=== PATIENT | male | born 1965 | race Native Hawaiian/Other Pacific Islander ===

== ENCOUNTER 2020-07-22 17:35 | Emergency (ER) | payer OTHER, MEDICARE, MEDICAID ==
[~2020-07-22] VITALS: Ht 180.3 cm; Wt 106.6 kg
[2020-07-22 19:55] VITALS: BP 161/87
== END 2020-07-22 21:48 | disposition home or self-care (01) ==
LOC: ER 17:35
DX: S43.401A Unspecified sprain of right shoulder joint, initial encounter (principal); E11.9 Type 2 diabetes mellitus without complications; I10 Essential (primary) hypertension; V49.9XXA Car occupant (driver) (passenger) injured in unspecified traffic accident, initial encounter; Y93.89 Activity, other specified; Y92.89 Other specified places as the place of occurrence of the external cause; Y99.8 Other external cause status
CPT/HCPCS: 73030

== ENCOUNTER 2020-09-08 20:08 | Inpatient (IN) | payer MEDICARE, MEDICAID ==
[~2020-09-08] VITALS: Ht 180.3 cm; Wt 106.5 kg
[2020-09-08] MEDS ORDERED: SODIUM CHLORIDE 0.9% 1,000 ML IV ONE (23:30)
[2020-09-08] MEDS ORDERED: ONDANSETRON HCL 4 MG/2 ML VIAL IV ONE (23:30)
[2020-09-08] MEDS ORDERED: MORPHINE SULFATE 4 MG/ML SYR/VIAL IV ONE (23:30)
[2020-09-09] MEDS ORDERED: MORPHINE SULFATE 4 MG/ML SYR/VIAL IV ONE (01:15)
[2020-09-09] MEDS ORDERED: LORazepam 2MG/ML-1ML VIAL IV ONE (05:00)
[2020-09-09] MEDS ORDERED: ASPirin 325 MG TAB PO ONE (05:00)
[2020-09-09] MEDS ORDERED: ACETAMINOPHEN 325 MG TAB PO PRN (05:15)
[2020-09-09] MEDS ORDERED: MORPHINE SULFATE 4 MG/ML SYR/VIAL IV PRN (05:15)
[2020-09-09] MEDS ORDERED: ONDANSETRON HCL 4 MG/2 ML VIAL IV PRN (05:15)
[2020-09-09] MEDS ORDERED: MORPHINE SULF INJ 2 MG/ML SYRINGE 1ML IV PRN (05:15)
[2020-09-09] MEDS ORDERED: HYDROcodone-ACET 5/325MG TAB PO PRN (05:15)
[2020-09-09] MEDS ORDERED: NITROGLYCERIN 0.4 MG SL TAB SL PRN (05:15)
[2020-09-09] MEDS ORDERED: DEXTROSE (50%) 50ML SYRG IV PRN (06:00)
[2020-09-09] MEDS ORDERED: SODIUM CHLOR 0.9% PF (SALINE LOCK) 10ML VIAL/SYR IV SCH (06:00)
[2020-09-09 06:38] LABS: Basophils # (auto) 0 10 ^3/uL (0-0.2); Basophils % (auto) 0.4 % (0.0-2.0); Eosinophils # (auto) 0.1 10 ^3/uL (0-0.8); Eosinophils % (auto) 2.8 % (0.0-7.0); Hematocrit 43.2 % (41.0-53.0); Hemoglobin 14.5 g/dL (13.5-17.5); Lymphocytes # (auto) 0.6 10 ^3/uL (0.4-5.4); Mean Corpuscular Hemoglobin 30.2 pg (28.0-32.0); Mean Corpuscular Hgb Conc. 33.6 g/dL (32.0-36.0); Mean Corpuscular Volume 89.8 fL (80.0-100.0); Monocytes # (auto) 0.4 10 ^3/uL (0-1.3); Monocytes % (auto) 12.3 % (0.0-12.0); Neutrophils # (auto) 2.5 10 ^3/uL (1.6-8.6); Neutrophils % (auto) 68.5 % (37.0-80.0); Nucleated Red Blood Cells % 0.4 %; Platelet Count (auto) 130 10^3/uL (140-450); Red Blood Cells 4.81 10^6/uL (4.5-5.90); Red Cell Distribution Width 14.6 % (11.8-14.3); White Blood Cell 3.6 10^3/uL (4.4-10.8)
[2020-09-09 06:49] LABS: Anion Gap 4 (5-15); Blood Urea Nitrogen 17 mg/dL (7-18); Calcium 8.8 mg/dL (8.5-10.1); Carbon Dioxide 27 mmol/L (21-32); Chloride 104 mmol/L (98-107); Glucose 226 mg/dL (74-106); Potassium 4.4 mmol/L (3.5-5.1); Sodium 135 mmol/L (136-145)
[2020-09-09 06:54] LABS: BUN/Creatinine Ratio 15.6; GFR African American 90 mL/min; GFR Non-African American 74 mL/min
[2020-09-09 07:00] LABS: Cholesterol 112 mg/dL (< 200)
[2020-09-09] MEDS ORDERED: InsuLIN REG 1unit/0.01ml Soln (100units/ml) SC SCH ×2 (07:00→22:00)
[2020-09-09] MEDS ORDERED: ACCU-CHEK COMFORT CURVE STRIP VI SCH (07:00)
[2020-09-09 07:03] LABS: HDL Cholesterol 52 mg/dL (40-59); LDL Cholesterol 54 mg/dL (< 100); Triglycerides 98 mg/dL (< 150)
[2020-09-09] MEDS ORDERED: TIZA2CAP7 PO (07:52)
[2020-09-09] MEDS ORDERED: CHOL20004 PO (07:52)
[2020-09-09] MEDS ORDERED: CYAN-17 PO (07:52)
[2020-09-09] MEDS ORDERED: AMLO5TAB15 PO (07:52)
[2020-09-09] MEDS ORDERED: ATOR10TA PO (07:52)
[2020-09-09] MEDS ORDERED: INSU100I33 SC (07:52)
[2020-09-09] MEDS ORDERED: B-COCAP34 OR (07:52)
[2020-09-09] MEDS ORDERED: NORT25CA PO (07:52)
[2020-09-09] MEDS ORDERED: ASPI-543 PO (07:52)
[2020-09-09] MEDS ORDERED: HYDR-4833 PO (07:52)
[2020-09-09] MEDS ORDERED: INSU100I49 SC (07:52)
[2020-09-09] MEDS ORDERED: PANT40T PO (07:52)
[2020-09-09] MEDS ORDERED: SULF400I3 PO (07:52)
[2020-09-09] MEDS ORDERED: TAMS0.4C36 PO (07:52)
[2020-09-09] MEDS ORDERED: PREG150C62 PO (07:52)
[2020-09-09] MEDS ORDERED: PRED1PAK8 PO (07:52)
[2020-09-09] MEDS ORDERED: METO-158 PO (07:52)
[2020-09-09] MEDS ORDERED: TACR1CAP19 OR (07:52)
[2020-09-09 09:00] VITALS: BP 156/73
--- NOTE | 2020-09-09 09:03 | NUR ---
PAIN MANAGEMENT PATIENT C/O PAIN, MORPHINE GIVEN ORDERED. PATIENT REQUESTING NEUROPATHY MEDICATION, PATIENT EDUCATED NO MEDICATION CAN BE GIVEN UNLESS ORDERED BY MD AND MD WILL BE INFORMED OF PATIENT REQUEST. PATIENT VERBALIZED UNDERSTANDING
--- NOTE | 2020-09-09 09:40 | NUR ---
HOLD P.T. UNTIL PATIENT IS EVALUATED BY ORTHO MD BECAUSE OF L ANKLE FRACTURE.
[2020-09-09] MEDS ORDERED: ENOXAPARIN SOD 40 MG/0.4 ML SYRINGE SC SCH (10:00)
[2020-09-09] MEDS ORDERED: DOCUSATE SOD 100 MG CAP PO SCH (10:00)
[2020-09-09] MEDS ORDERED: ASPirin 81 mg TAB PO SCH (10:00)
[2020-09-09] MEDS ORDERED: ZINC SULFATE 220mg CAP or TAB PO SCH (10:00)
[2020-09-09] MEDS ORDERED: MULTIPLE VITAMIN TAB PO SCH (10:00)
[2020-09-09] MEDS ORDERED: ASCORBIC ACID 500 MG TAB PO SCH (10:00)
[2020-09-09] MEDS ORDERED: TACROLIMUS 1 MG CAP PO SCH (10:00)
[2020-09-09] MEDS ORDERED: METOPROLOL TARTRATE 50 MG TAB PO SCH (10:00)
--- NOTE | 2020-09-09 10:15 | NUR ---
AMA PATIENT ALERT AND ORIENTED X4 PATIENT REQUESTING TO LEAVE AGAINST MEDICAL ADVICE PATIENT EDUCATED ON RISKS OF LEAVING BEFORE RECEIVING CARE, PATIENT VERBALIZED UNDERSTANDING BUT STILL REQUESTING TO LEAVE. DAUGHTER HIGINIO CALLED REQUESTING FATHER TO HAVE AMA FORM PRINTED DAUGHTER EDUCATED ON RISKS OF PATIENT LEAVING AMA, PER HIGINIO SHE IS ON HER WAY TO SCIENTIFIC INFORMATICS ANALYST PATIENT. IV REMOVED CATHETER INTACT, PRESSURE DRESSING APPLIED PATIENT TOLERATED WELL. PATIENT ASSISTED WITH GETTING DRESSED AND ASSISTED TO PERSONAL VEHICLE USING WHEELCHAIR. PATIENT DENIES ALL CHEST PAIN AND SOB, PATIENT COMPLAINS OF NEUROPATHY PAINS. PATIENT ADVISED TO SEE PCP OR RETURN TO ER
[2020-09-09] MEDS ORDERED: ATORVASTATIN 20 MG TAB PO SCH (22:00)
== END 2020-09-09 10:15 | disposition left against medical advice (07) | DRG 563 ==
LOC: ER 20:09 → OVERFLOW 20:10 → CENTRAL 09-09 06:45
PROVIDERS: ADMIT Nurse Practitioner Family; ATTEND Nurse Practitioner Family
DX: S82.52XA Displaced fracture of medial malleolus of left tibia, initial encounter for closed fracture (principal); I47.2 Ventricular tachycardia; Z94.0 Kidney transplant status; E11.22 Type 2 diabetes mellitus with diabetic chronic kidney disease; E78.5 Hyperlipidemia, unspecified; F32.9 Major depressive disorder, single episode, unspecified; G89.4 Chronic pain syndrome; Z53.29 Procedure and treatment not carried out because of patient's decision for other reasons; Y93.01 Activity, walking, marching and hiking; I12.9 Hypertensive chronic kidney disease with stage 1 through stage 4 chronic kidney disease, or unspecified chronic kidney disease; N18.9 Chronic kidney disease, unspecified; X50.1XXA Overexertion from prolonged static or awkward postures, initial encounter; Y92.89 Other specified places as the place of occurrence of the external cause; Y99.8 Other external cause status
CPT/HCPCS: 36415; 73610; 80048; 80061; 82962; 83036; 84484; 85025; 93005; 99291; G0378; J1815; J2405; J7507

== ENCOUNTER 2023-09-23 17:04 | Inpatient (IN) | payer MEDICARE, MEDICAID ==
[~2023-09-23] VITALS: Ht 180.3 cm; Wt 104.5 kg
[~2023-09-23 17:04] MED LIST: AMLO1TAB22 PO; ASPI-543 PO; ATOR10TA PO; B-COCAP34 OR; CHOL20004 PO; CYAN-17 PO; HYDR-4833 PO; INSU100I33 SC; INSU100I49 SC; METO-158 PO; NORT25CA PO; PANT40T PO; PRED1PAK8 PO; PREG-111 PO; SULF400I3 PO; TACR1CAP19 OR; TAMS0.4C36 PO; TIZA2CAP7 PO
[2023-09-23 19:02] LABS: Basophils # (auto) 0.1 10 ^3/uL (0-0.2); Basophils % (auto) 0.7 % (0.0-2.0); Eosinophils # (auto) 0.2 10 ^3/uL (0-0.8); Eosinophils % (auto) 2.3 % (0.0-7.0); Hematocrit 38.1 % (41.0-53.0); Hemoglobin 13.2 g/dL (13.5-17.5); Lymphocytes # (auto) 0.9 10 ^3/uL (0.4-5.4); Lymphocytes % (auto) 9.5 % (10.0-50.0); Mean Corpuscular Hemoglobin 32.7 pg (28.0-32.0); Mean Corpuscular Hgb Conc. 34.7 g/dL (32.0-36.0); Mean Corpuscular Volume 94.2 fL (80.0-100.0); Monocytes # (auto) 1.2 10 ^3/uL (0-1.3); Monocytes % (auto) 13.3 % (0.0-12.0); Neutrophils # (auto) 6.7 10 ^3/uL (1.6-8.6); Neutrophils % (auto) 74.2 % (37.0-80.0); Nucleated Red Blood Cells % 0.1 %; Red Blood Cells 4.05 10^6/uL (4.5-5.90); Red Cell Distribution Width 13.9 % (11.8-14.3)
[2023-09-23 19:21] LABS: Alanine Aminotransferase 17 U/L (7-40); Albumin 3.4 g/dL (3.2-4.8); Alkaline Phosphatase 85 U/L (46-116); Anion Gap 17 (5-15); Aspartate Aminotransferase 18 U/L (13-40); Bilirubin, Total 0.6 mg/dL (0.2-1.0); Calcium 8.5 mg/dL (8.5-10.1); Carbon Dioxide 20 mmol/L (20-30); Chloride 99 mmol/L (98-107); Glucose 196 mg/dL (74-106); Potassium 3.3 mmol/L (3.5-5.1); Sodium 136 mmol/L (136-145)
[2023-09-23 19:22] LABS: Total Protein 5.7 g/dL (5.7-8.2)
[2023-09-23 19:23] LABS: BUN/Creatinine Ratio 5.6 (10.0-20.0); Blood Urea Nitrogen < 5 mg/dL (9-23)
[2023-09-23 19:30] VITALS: PULSE 114; RESP 19; O2SAT 96
[2023-09-23] MEDS ORDERED: LACTATED RINGER'S 2,000 ML IV ONE (21:30)
[2023-09-23 22:42] LABS: Lipase 32 U/L (12-53); Magnesium 1.4 mg/dL (1.6-2.6)
[2023-09-23 22:42] LABS: Erythrocyte Sedimentation Rate 39 mm/hr (0-20)
[2023-09-23 22:46] LABS: Blood Alcohol < 3.0 mg/dL (<10)
[2023-09-24 00:01] LABS: Urine Bacteria NONE SEEN /hpf (None Seen); Urine Blood Negative /uL (Negative); Urine Clarity Clear (Clear); Urine Color Yellow (Yellow); Urine Mucus FEW (None Seen); Urine Protein, UAD Negative (Negative); Urine Urobilinogen Normal (Negative); Urine WBC <1 /hpf (0 - 3)
[2023-09-24] MEDS ORDERED: ONDANSETRON HCL 4 MG/2 ML VIAL IV ONE (02:45)
[2023-09-24] MEDS ORDERED: HYDROmorphone HCL 2 MG/ML VL/or syr IV ONE (02:45)
[2023-09-24] MEDS ORDERED: NITROGLYCERIN 0.4 MG SL TAB SL PRN (05:15)
[2023-09-24] MEDS ORDERED: POTASSIUM CHL 20 Meq TABLET PO ONE (05:15)
[2023-09-24] MEDS ORDERED: MORPHINE SULFATE INJ 2 MG/ml SYRG IV PRN (05:15)
[2023-09-24] MEDS ORDERED: ONDANSETRON HCL 4 MG/2 ML VIAL IV PRN (05:15)
[2023-09-24] MEDS ORDERED: DEXTROSE (50%) 50ML SYRG IV PRN (05:15)
[2023-09-24 06:27] LABS: Chloride 98 mmol/L (98-107); Potassium 3.1 mmol/L (3.5-5.1); Sodium 134 mmol/L (136-145)
[2023-09-24 06:28] LABS: Anion Gap 15 (5-15); Calcium 8.3 mg/dL (8.5-10.1); Carbon Dioxide 21 mmol/L (20-30)
[2023-09-24 06:33] LABS: Glucose 213 mg/dL (74-106)
[2023-09-24 06:34] LABS: BUN/Creatinine Ratio 5.7 (10.0-20.0); Blood Urea Nitrogen < 5 mg/dL (9-23)
[2023-09-24] MEDS: MAGNESIUM SULFATE 1GM/100ML 100 ML IV SCH ×2 (06:49→17:02)
[2023-09-24] MEDS: SODIUM CHLORIDE 0.9% 1,000 ML IV SCH ×2 (06:49→16:22)
[2023-09-24 08:00] VITALS: RESP 20; O2SAT 98
[2023-09-24] MEDS: ACCU-CHEK COMFORT CURVE STRIP VI SCH ×4 (08:00→22:28)
[2023-09-24] MEDS: InsuLIN REG 1unit/0.01ml Soln (100units/ml) SC SCH ×4 (09:32→22:31)
[2023-09-24] MEDS ORDERED: ROSU5TAB5 PO (09:48)
[2023-09-24] MEDS ORDERED: SEMA14TA2 PO (09:48)
[2023-09-24] MEDS ORDERED: NORT25CA PO (09:48)
[2023-09-24] MEDS ORDERED: BUSP15TA60 PO (09:48)
[2023-09-24] MEDS ORDERED: DESV1TAB PO (09:48)
[2023-09-24] MEDS ORDERED: TACROLIMUS 1 MG CAP PO SCH (10:00)
[2023-09-24] MEDS: busPIRone HCL 10 MG TAB PO SCH ×2 (10:42→22:29)
[2023-09-24] MEDS: ACETAMINOPHEN 325 MG TAB PO PRN (10:42)
[2023-09-24] MEDS: amLODIPine BESYLATE 5 MG TAB PO SCH (10:42)
[2023-09-24] MEDS ORDERED: MAGNESIUM SULFATE 1GM/100ML 100 ML IV ONE (13:31)
[2023-09-24] MEDS ORDERED: chlorproMAZINE HCL 25 MG TAB PO PRN (14:15)
[2023-09-24 14:20] VITALS: BP 120/38; PULSE 105; RESP 17; TEMP 98.8; O2SAT 99
[2023-09-24] MEDS ORDERED: LINA1CAP2 PO (15:29)
[2023-09-24] MEDS ORDERED: ROSU1TAB12 PO (15:29)
[2023-09-24 17:00] VITALS: BP 131/79; PULSE 100; RESP 18; TEMP 98.5; O2SAT 100
[2023-09-24] MEDS: HYDROcodone-ACET 5/325MG TAB PO PRN (17:03)
[2023-09-24] MEDS ORDERED: TAMSULOSIN HYDROCHLORIDE 0.4 MG CAP PO SCH (18:00)
[2023-09-24 20:00] VITALS: PULSE 110; RESP 18; O2SAT 98
[2023-09-24] MEDS ORDERED: POTASSIUM EFFERVESENT TAB 25 MEQ PO ONE (20:30)
[2023-09-24 22:00] VITALS: BP 136/34; PULSE 102; TEMP 98.3; O2SAT 100
[2023-09-24] MEDS: PANTOPRAZOLE 40 MG/10 ML VIAL INJ IV SCH (22:15)
[2023-09-24] MEDS: ATORVASTATIN 20 MG TAB PO SCH (22:29)
[2023-09-24] MEDS: TACROLIMUS 1 MG CAP PO SCH (22:29)
[2023-09-25] VITALS (8 sets, daily range): BP systolic 97–160; BP diastolic 31–71; PULSE 103–119; RESP 16–20; TEMP 97.9–98.3; O2SAT 9–99
[2023-09-25] MEDS: HYDROcodone-ACET 5/325MG TAB PO PRN ×3 (00:59→18:23)
[2023-09-25] MEDS: ACCU-CHEK COMFORT CURVE STRIP VI SCH ×6 (00:59→23:29)
[2023-09-25] MEDS: InsuLIN REG 1unit/0.01ml Soln (100units/ml) SC SCH ×5 (01:14→18:57)
[2023-09-25 05:23] LABS: Basophils # (auto) 0 10 ^3/uL (0-0.2); Basophils % (auto) 0.4 % (0.0-2.0); Eosinophils # (auto) 0.3 10 ^3/uL (0-0.8); Eosinophils % (auto) 2.5 % (0.0-7.0); Hematocrit 37.8 % (41.0-53.0); Hemoglobin 12.9 g/dL (13.5-17.5); Lymphocytes # (auto) 0.9 10 ^3/uL (0.4-5.4); Lymphocytes % (auto) 9.3 % (10.0-50.0); Mean Corpuscular Hemoglobin 32.1 pg (28.0-32.0); Mean Corpuscular Hgb Conc. 34.1 g/dL (32.0-36.0); Mean Corpuscular Volume 94.1 fL (80.0-100.0); Monocytes # (auto) 0.9 10 ^3/uL (0-1.3); Monocytes % (auto) 8.5 % (0.0-12.0); Neutrophils # (auto) 8.1 10 ^3/uL (1.6-8.6); Neutrophils % (auto) 79.3 % (37.0-80.0); Nucleated Red Blood Cells % 0.1 %; Red Blood Cells 4.02 10^6/uL (4.5-5.90); Red Cell Distribution Width 13.8 % (11.8-14.3); White Blood Cell 10.2 10^3/uL (4.4-10.8)
[2023-09-25 05:45] LABS: Alanine Aminotransferase 10 U/L (7-40); Albumin 3.4 g/dL (3.2-4.8); Alkaline Phosphatase 90 U/L (46-116); Anion Gap 14 (5-15); Aspartate Aminotransferase 18 U/L (13-40); Calcium 8.7 mg/dL (8.7-10.4); Carbon Dioxide 22 mmol/L (20-30); Chloride 98 mmol/L (98-107); Glucose 134 mg/dL (74-106); Potassium 3.6 mmol/L (3.5-5.1); Sodium 134 mmol/L (136-145)
[2023-09-25 05:46] LABS: Bilirubin, Total 0.5 mg/dL (0.2-1.0); Total Protein 6.1 g/dL (5.7-8.2)
[2023-09-25] MEDS: SODIUM CHLORIDE 0.9% 1,000 ML IV SCH (05:50)
[2023-09-25 05:57] LABS: BUN/Creatinine Ratio 6.3 (10.0-20.0); Blood Urea Nitrogen < 5 mg/dL (9-23)
[2023-09-25] MEDS ORDERED: SODIUM CHLORIDE 0.9% 500 ML IV ONE (09:45)
[2023-09-25] MEDS ORDERED: VANCOMYCIN PER PHARMACY 0 MG IV SCH (09:45)
[2023-09-25] MEDS ORDERED: PANTOPRAZOLE 40 MG/10 ML VIAL INJ IV SCH (10:00)
[2023-09-25] MEDS: amLODIPine BESYLATE 5 MG TAB PO SCH (10:00)
[2023-09-25] MEDS ORDERED: VANCOMYCIN 1GM/250ML 250 ML IV ONE (10:15)
[2023-09-25] MEDS: busPIRone HCL 10 MG TAB PO SCH (11:16)
[2023-09-25] MEDS: PANTOPRAZOLE 40 MG/10 ML VIAL INJ IV SCH (11:16)
[2023-09-25] MEDS: predniSONE 5 MG TAB PO SCH (11:19)
[2023-09-25] MEDS: TACROLIMUS 1 MG CAP PO SCH ×2 (11:49→18:29)
[2023-09-25] MEDS ORDERED: LIDOCAINE VISCOUS 2% 15ML UD ONE (12:41)
[2023-09-25] MEDS ORDERED: SODIUM CHLORIDE LOCK 10 ML ONE (12:42)
[2023-09-25] MEDS ORDERED: MIDAZOLAM HCL 5 MG/ML-1ML VIAL ONE (12:42)
[2023-09-25] MEDS ORDERED: diphenhdrAMINE HCL 50 MG/1 ML VL ONE (12:42)
[2023-09-25] MEDS ORDERED: fentaNYL CITRATE 100 MCG/2 ML VL ONE ×2 (12:42→15:47)
[2023-09-25] MEDS ORDERED: MIDAZOLAM HCL 2MG/2ML 2ml VIAL (1mg/ml) ONE (15:47)
[2023-09-25] MEDS ORDERED: ONDANSETRON HCL 4 MG/2 ML VIAL ONE (15:48)
[2023-09-25] MEDS ORDERED: LIDOCAINE 2% (LOCAL ANESTH.) PF 5ml SDV ONE (15:48)
[2023-09-25] MEDS ORDERED: PROPOFOL 10 MG/ML 20 ML IV ONE (15:48)
[2023-09-25] MEDS ORDERED: METOCLOPRAMIDE HCL 5MG/ml INJ 2ml VIAL IV PRN (16:15)
[2023-09-25] MEDS ORDERED: InsuLIN REG 1unit/0.01ml Soln (100units/ml) IV ONE (16:15)
[2023-09-25] MEDS ORDERED: ONDANSETRON HCL 4 MG/2 ML VIAL IV PRN (16:30)
[2023-09-25] MEDS: SUCRALFATE 1 GM/10 ML ORAL SUSP PO SCH (18:29)
[2023-09-25] MEDS: CEFEPIME 2GM/50ML NS 50 ML IV SCH (19:11)
[2023-09-25] MEDS ORDERED: MELATONIN 5 MG TAB PO ONE (23:15)
[2023-09-26] MEDS: InsuLIN REG 1unit/0.01ml Soln (100units/ml) SC SCH ×6 (00:02→20:24)
[2023-09-26] MEDS: PANTOPRAZOLE 40 MG/10 ML VIAL INJ IV SCH ×3 (00:04→23:00)
[2023-09-26] MEDS: VANCOMYCIN 1GM/250ML 250 ML IV SCH ×3 (00:04→19:01)
[2023-09-26] MEDS: busPIRone HCL 10 MG TAB PO SCH ×3 (00:04→22:59)
[2023-09-26] MEDS: SUCRALFATE 1 GM/10 ML ORAL SUSP PO SCH ×5 (00:05→22:59)
[2023-09-26] MEDS: ATORVASTATIN 20 MG TAB PO SCH ×2 (00:06→22:59)
[2023-09-26] MEDS: HYDROcodone-ACET 5/325MG TAB PO PRN ×4 (00:07→21:14)
[2023-09-26] MEDS: CEFEPIME 2GM/50ML NS 50 ML IV SCH ×2 (04:14→18:00)
[2023-09-26 05:00] VITALS: BP 127/45; PULSE 105; RESP 18; TEMP 97.7; O2SAT 100
[2023-09-26] MEDS: ACCU-CHEK COMFORT CURVE STRIP VI SCH ×6 (05:18→20:21)
[2023-09-26 05:43] LABS: Chloride 99 mmol/L (98-107); Potassium 3.7 mmol/L (3.5-5.1); Sodium 134 mmol/L (136-145)
[2023-09-26 05:45] LABS: Anion Gap 10 (5-15); Calcium 8.2 mg/dL (8.7-10.4); Carbon Dioxide 25 mmol/L (20-30)
[2023-09-26 05:53] LABS: Basophils # (auto) 0 10 ^3/uL (0-0.2); Basophils % (auto) 0.2 % (0.0-2.0); Eosinophils # (auto) 0.1 10 ^3/uL (0-0.8); Hematocrit 36.1 % (41.0-53.0); Hemoglobin 12.7 g/dL (13.5-17.5); Lymphocytes # (auto) 0.4 10 ^3/uL (0.4-5.4); Lymphocytes % (auto) 7.6 % (10.0-50.0); Mean Corpuscular Hemoglobin 33.3 pg (28.0-32.0); Mean Corpuscular Hgb Conc. 35.2 g/dL (32.0-36.0); Mean Corpuscular Volume 94.8 fL (80.0-100.0); Monocytes # (auto) 0.5 10 ^3/uL (0-1.3); Monocytes % (auto) 7.6 % (0.0-12.0); Neutrophils # (auto) 4.9 10 ^3/uL (1.6-8.6); Neutrophils % (auto) 82.6 % (37.0-80.0); Nucleated Red Blood Cells % 0.1 %; Red Blood Cells 3.81 10^6/uL (4.5-5.90); Red Cell Distribution Width 13.6 % (11.8-14.3); White Blood Cell 5.9 10^3/uL (4.4-10.8)
[2023-09-26 06:18] LABS: BUN/Creatinine Ratio 5.4 (10.0-20.0); Blood Urea Nitrogen < 5 mg/dL (9-23); Glucose 288 mg/dL (74-106)
[2023-09-26 08:00] VITALS: PULSE 104; PULSE 107; RESP 16; O2SAT 98
[2023-09-26] MEDS: amLODIPine BESYLATE 5 MG TAB PO SCH (08:46)
[2023-09-26 09:23] VITALS: BP 157/45; PULSE 111; RESP 17; TEMP 97.9; O2SAT 99
[2023-09-26] MEDS: TACROLIMUS 1 MG CAP PO SCH ×2 (09:47→21:14)
[2023-09-26 12:00] VITALS: BP 109/35; PULSE 107; RESP 18; TEMP 98.9; O2SAT 98
[2023-09-26] MEDS: predniSONE 5 MG TAB PO SCH (12:59)
[2023-09-26 16:53] VITALS: BP 120/35; PULSE 104; RESP 18; TEMP 98; O2SAT 99
[2023-09-26] MEDS ORDERED: VANCOMYCIN 1GM/250ML 250 ML IV SCH (19:30)
[2023-09-26 20:00] VITALS: PULSE 110; RESP 18; O2SAT 96
[2023-09-26 21:25] LABS: Magnesium 1.4 mg/dL (1.6-2.6)
[2023-09-26 21:27] LABS: Phosphorus 2.3 mg/dL (2.4-5.1)
[2023-09-26] MEDS ORDERED: MELATONIN 5 MG TAB PO ONE ×2 (22:00→23:00)
[2023-09-26 22:30] LABS: Magnesium 1.5 mg/dL (1.6-2.6)
[2023-09-26 22:31] LABS: Phosphorus 2.2 mg/dL (2.4-5.1)
[2023-09-26] MEDS ORDERED: MAGNESIUM SULFATE 1GM/100ML 100 ML IV ONE (23:00)
[2023-09-27] VITALS (8 sets, daily range): BP systolic 110–147; BP diastolic 34–87; PULSE 82–122; RESP 16–18; TEMP 97.7–99.4; O2SAT 96–100
[2023-09-27] MEDS: ACCU-CHEK COMFORT CURVE STRIP VI SCH ×7 (00:11→23:59)
[2023-09-27] MEDS: CEFEPIME 2GM/50ML NS 50 ML IV SCH ×4 (00:12→22:04)
[2023-09-27] MEDS: InsuLIN REG 1unit/0.01ml Soln (100units/ml) SC SCH ×6 (00:28→21:02)
[2023-09-27 03:11] LABS: COVID19 ANTIGEN SOFIA FIA NEGATIVE (NEGATIVE)
[2023-09-27 05:29] LABS: Anion Gap 9 (5-15); Carbon Dioxide 29 mmol/L (20-30); Chloride 100 mmol/L (98-107); Potassium 3.4 mmol/L (3.5-5.1); Sodium 138 mmol/L (136-145)
[2023-09-27 05:30] LABS: Calcium 8.8 mg/dL (8.7-10.4)
[2023-09-27 05:36] LABS: Blood Urea Nitrogen < 5 mg/dL (9-23); Glucose 119 mg/dL (74-106)
[2023-09-27 05:38] LABS: Basophils # (auto) 0 10 ^3/uL (0-0.2); Basophils % (auto) 0.4 % (0.0-2.0); Eosinophils # (auto) 0.3 10 ^3/uL (0-0.8); Eosinophils % (auto) 3.2 % (0.0-7.0); Hematocrit 40.1 % (41.0-53.0); Hemoglobin 13.9 g/dL (13.5-17.5); Lymphocytes # (auto) 0.6 10 ^3/uL (0.4-5.4); Lymphocytes % (auto) 7.6 % (10.0-50.0); Mean Corpuscular Hemoglobin 32.1 pg (28.0-32.0); Mean Corpuscular Hgb Conc. 34.7 g/dL (32.0-36.0); Mean Corpuscular Volume 92.7 fL (80.0-100.0); Monocytes # (auto) 0.7 10 ^3/uL (0-1.3); Neutrophils # (auto) 6.2 10 ^3/uL (1.6-8.6); Neutrophils % (auto) 79.8 % (37.0-80.0); Red Blood Cells 4.33 10^6/uL (4.5-5.90); White Blood Cell 7.8 10^3/uL (4.4-10.8)
[2023-09-27] MEDS: SUCRALFATE 1 GM/10 ML ORAL SUSP PO SCH ×4 (06:05→22:04)
[2023-09-27] MEDS ORDERED: POTASSIUM PHOSPHATE 22 MEQ in SODIUM CHL 0.9% 100 ML IV ONE (07:15)
[2023-09-27] MEDS: VANCOMYCIN 1GM/250ML 250 ML IV SCH ×2 (08:23→20:38)
[2023-09-27] MEDS ORDERED: MAGNESIUM OXIDE 400 MG TAB PO ONE (08:30)
[2023-09-27 09:41] LABS: INR 1.19 (0.9-1.15); Partial Thromboplastin Time 32.3 SEC (24.5-34.5); Prothrombin Time 12.4 sec (9.3-11.8)
[2023-09-27] MEDS: TACROLIMUS 1 MG CAP PO SCH ×2 (10:47→22:04)
[2023-09-27] MEDS: PANTOPRAZOLE 40 MG/10 ML VIAL INJ IV SCH ×2 (10:47→22:04)
[2023-09-27] MEDS: predniSONE 5 MG TAB PO SCH (11:06)
[2023-09-27] MEDS: busPIRone HCL 10 MG TAB PO SCH ×2 (11:06→22:03)
[2023-09-27] MEDS: amLODIPine BESYLATE 5 MG TAB PO SCH (11:06)
[2023-09-27] MEDS: HYDROcodone-ACET 5/325MG TAB PO PRN ×2 (12:16→20:36)
[2023-09-27] MEDS ORDERED: diphenhdrAMINE HCL 50 MG/1 ML VL IV PRN (15:30)
[2023-09-27] MEDS: ATORVASTATIN 20 MG TAB PO SCH (22:00)
[2023-09-27] MEDS: AMIODARONE HCL 200 MG TAB PO SCH (22:03)
[2023-09-28] VITALS (9 sets, daily range): BP systolic 123–168; BP diastolic 53–82; PULSE 86–108; RESP 18–20; TEMP 98–98.6; O2SAT 94–100
[2023-09-28] MEDS: InsuLIN REG 1unit/0.01ml Soln (100units/ml) SC SCH ×6 (00:01→20:35)
[2023-09-28] MEDS: ACCU-CHEK COMFORT CURVE STRIP VI SCH ×5 (04:15→20:31)
[2023-09-28] MEDS: CEFEPIME 2GM/50ML NS 50 ML IV SCH ×3 (06:06→21:35)
[2023-09-28] MEDS: SUCRALFATE 1 GM/10 ML ORAL SUSP PO SCH ×4 (06:09→21:35)
[2023-09-28 07:55] LABS: Basophils # (auto) 0 10 ^3/uL (0-0.2); Basophils % (auto) 0.3 % (0.0-2.0); Eosinophils # (auto) 0.3 10 ^3/uL (0-0.8); Eosinophils % (auto) 3.8 % (0.0-7.0); Hematocrit 39.2 % (41.0-53.0); Hemoglobin 13.2 g/dL (13.5-17.5); Lymphocytes # (auto) 0.7 10 ^3/uL (0.4-5.4); Lymphocytes % (auto) 8.7 % (10.0-50.0); Mean Corpuscular Hemoglobin 30.7 pg (28.0-32.0); Mean Corpuscular Hgb Conc. 33.7 g/dL (32.0-36.0); Mean Corpuscular Volume 91.1 fL (80.0-100.0); Monocytes # (auto) 0.7 10 ^3/uL (0-1.3); Monocytes % (auto) 8.6 % (0.0-12.0); Neutrophils # (auto) 6.7 10 ^3/uL (1.6-8.6); Neutrophils % (auto) 78.6 % (37.0-80.0); Nucleated Red Blood Cells % 0.1 %; White Blood Cell 8.6 10^3/uL (4.4-10.8)
[2023-09-28 08:07] LABS: Chloride 103 mmol/L (98-107); Potassium 3.9 mmol/L (3.5-5.1); Sodium 139 mmol/L (136-145)
[2023-09-28 08:08] LABS: Anion Gap 8 (5-15); Carbon Dioxide 28 mmol/L (20-30)
[2023-09-28 08:09] LABS: Calcium 8.4 mg/dL (8.5-10.1)
[2023-09-28 08:13] LABS: Glucose 188 mg/dL (74-106)
[2023-09-28 08:16] LABS: Phosphorus 3.5 mg/dL (2.4-5.1)
[2023-09-28 08:21] LABS: BUN/Creatinine Ratio 5.7 (10.0-20.0); Blood Urea Nitrogen < 5 mg/dL (9-23)
[2023-09-28] MEDS ORDERED: GLYCOPYRROLATE 0.2 MG/ML 1ML VIAL ONE (09:01)
[2023-09-28] MEDS ORDERED: PROPOFOL 10 MG/ML 20 ML IV ONE (09:01)
[2023-09-28] MEDS ORDERED: MIDAZOLAM HCL 2MG/2ML 2ml VIAL (1mg/ml) ONE (09:01)
[2023-09-28] MEDS ORDERED: ONDANSETRON HCL 4 MG/2 ML VIAL ONE (09:01)
[2023-09-28] MEDS ORDERED: LIDOCAINE 2% (LOCAL ANESTH.) PF 5ml SDV ONE (09:01)
[2023-09-28] MEDS ORDERED: fentaNYL CITRATE 100 MCG/2 ML VL ONE (09:01)
[2023-09-28] MEDS ORDERED: ceFAZolin 2 GM/D5W100ml 100 ML IV ONE (10:48)
[2023-09-28] MEDS ORDERED: HYDROmorphone HCL 2 MG/ML VL/or syr IV PRN (11:15)
[2023-09-28] MEDS ORDERED: ONDANSETRON HCL 4 MG/2 ML VIAL IV PRN (11:15)
[2023-09-28] MEDS ORDERED: ACCU-CHEK COMFORT CURVE STRIP VI ONE (11:15)
[2023-09-28] MEDS ORDERED: VANCOMYCIN 1GM/250ML 250 ML IV SCH (11:30)
[2023-09-28] MEDS: PANTOPRAZOLE 40 MG/10 ML VIAL INJ IV SCH ×2 (12:00→21:35)
[2023-09-28] MEDS: TACROLIMUS 1 MG CAP PO SCH ×2 (12:00→20:30)
[2023-09-28] MEDS: busPIRone HCL 10 MG TAB PO SCH ×2 (12:02→21:36)
[2023-09-28] MEDS: predniSONE 5 MG TAB PO SCH (12:02)
[2023-09-28] MEDS: amLODIPine BESYLATE 5 MG TAB PO SCH (12:02)
[2023-09-28] MEDS: AMIODARONE HCL 200 MG TAB PO SCH ×2 (12:02→21:36)
[2023-09-28 12:11] LABS: Magnesium 1.6 mg/dL (1.6-2.6)
[2023-09-28] MEDS: HYDROcodone-ACET 5/325MG TAB PO PRN ×2 (12:29→20:30)
[2023-09-28] MEDS: guaiFENesin-DM 100/10mg/5ml SYR PO PRN ×3 (14:58→23:35)
[2023-09-28] MEDS: ATORVASTATIN 20 MG TAB PO SCH (21:38)
[2023-09-29] VITALS (8 sets, daily range): BP systolic 116–144; BP diastolic 35–57; PULSE 98–106; RESP 19–20; TEMP 98.2–100.3; O2SAT 98–100
[2023-09-29] MEDS: VANCOMYCIN 1GM/250ML 250 ML IV SCH ×2 (00:19→15:32)
[2023-09-29] MEDS: ACCU-CHEK COMFORT CURVE STRIP VI SCH ×7 (00:20→23:18)
[2023-09-29] MEDS: InsuLIN REG 1unit/0.01ml Soln (100units/ml) SC SCH ×7 (00:28→23:19)
[2023-09-29] MEDS: HYDROcodone-ACET 5/325MG TAB PO PRN ×4 (02:09→21:33)
[2023-09-29] MEDS: ACETAMINOPHEN 325 MG TAB PO PRN (04:28)
[2023-09-29] MEDS: CEFEPIME 2GM/50ML NS 50 ML IV SCH ×3 (05:36→22:23)
[2023-09-29] MEDS: guaiFENesin-DM 100/10mg/5ml SYR PO PRN ×3 (05:41→22:59)
[2023-09-29] MEDS: SUCRALFATE 1 GM/10 ML ORAL SUSP PO SCH ×4 (05:41→22:23)
[2023-09-29 08:36] LABS: Chloride 98 mmol/L (98-107); Potassium 4.1 mmol/L (3.5-5.1)
[2023-09-29 08:37] LABS: Anion Gap 4 (5-15); Carbon Dioxide 32 mmol/L (20-30)
[2023-09-29 08:38] LABS: Basophils # (auto) 0 10 ^3/uL (0-0.2); Basophils % (auto) 0.4 % (0.0-2.0); Eosinophils # (auto) 0.2 10 ^3/uL (0-0.8); Eosinophils % (auto) 2.6 % (0.0-7.0); Hematocrit 39.5 % (41.0-53.0); Hemoglobin 13.4 g/dL (13.5-17.5); Lymphocytes # (auto) 0.4 10 ^3/uL (0.4-5.4); Lymphocytes % (auto) 5.5 % (10.0-50.0); Mean Corpuscular Hemoglobin 31.8 pg (28.0-32.0); Mean Corpuscular Volume 93.6 fL (80.0-100.0); Monocytes # (auto) 0.9 10 ^3/uL (0-1.3); Monocytes % (auto) 12.8 % (0.0-12.0); Neutrophils # (auto) 5.8 10 ^3/uL (1.6-8.6); Neutrophils % (auto) 78.7 % (37.0-80.0); Nucleated Red Blood Cells % 0.2 %; Red Blood Cells 4.23 10^6/uL (4.5-5.90); White Blood Cell 7.3 10^3/uL (4.4-10.8)
[2023-09-29 08:42] LABS: Glucose 205 mg/dL (74-106)
[2023-09-29 08:44] LABS: BUN/Creatinine Ratio 5.7 (10.0-20.0); Blood Urea Nitrogen < 5 mg/dL (9-23); Sodium 134 mmol/L (136-145)
[2023-09-29 08:45] LABS: Phosphorus 2.5 mg/dL (2.4-5.1)
[2023-09-29] MEDS: TACROLIMUS 1 MG CAP PO SCH ×2 (08:58→22:22)
[2023-09-29] MEDS: PANTOPRAZOLE 40 MG/10 ML VIAL INJ IV SCH ×2 (08:59→22:23)
[2023-09-29] MEDS: busPIRone HCL 10 MG TAB PO SCH ×2 (08:59→22:23)
[2023-09-29] MEDS: predniSONE 5 MG TAB PO SCH (08:59)
[2023-09-29] MEDS: AMIODARONE HCL 200 MG TAB PO SCH ×2 (08:59→22:22)
[2023-09-29 09:21] LABS: Magnesium 1.5 mg/dL (1.6-2.6)
[2023-09-29] MEDS: amLODIPine BESYLATE 5 MG TAB PO SCH (12:10)
[2023-09-29] MEDS: MAGNESIUM SULFATE 1GM/100ML 100 ML IV SCH ×3 (14:15→18:06)
[2023-09-29] MEDS: METOPROLOL TARTRATE 50 MG TAB PO SCH (22:00)
[2023-09-29] MEDS: ATORVASTATIN 20 MG TAB PO SCH (22:22)
[2023-09-30] MEDS: ACCU-CHEK COMFORT CURVE STRIP VI SCH ×4 (03:37→17:42)
[2023-09-30] MEDS: HYDROcodone-ACET 5/325MG TAB PO PRN ×2 (03:38→11:22)
[2023-09-30] MEDS: InsuLIN REG 1unit/0.01ml Soln (100units/ml) SC SCH ×4 (03:39→17:40)
[2023-09-30 05:00] VITALS: BP 134/27; PULSE 107; RESP 19; TEMP 101; O2SAT 92
[2023-09-30] MEDS: SUCRALFATE 1 GM/10 ML ORAL SUSP PO SCH ×3 (06:04→17:32)
[2023-09-30] MEDS: CEFEPIME 2GM/50ML NS 50 ML IV SCH ×2 (06:04→14:00)
[2023-09-30] MEDS: ACETAMINOPHEN 325 MG TAB PO PRN ×2 (06:04→14:49)
[2023-09-30 08:00] VITALS: PULSE 100; PULSE 101; RESP 20; O2SAT 99
[2023-09-30] MEDS: PANTOPRAZOLE 40 MG/10 ML VIAL INJ IV SCH (08:35)
[2023-09-30] MEDS: TACROLIMUS 1 MG CAP PO SCH (08:35)
[2023-09-30 08:56] VITALS: BP 138/21; PULSE 100; RESP 21; TEMP 97.9; O2SAT 92
[2023-09-30] MEDS: VANCOMYCIN 1GM/250ML 250 ML IV SCH (09:08)
[2023-09-30 09:31] LABS: Basophils # (auto) 0.1 10 ^3/uL (0-0.2); Basophils % (auto) 0.9 % (0.0-2.0); Eosinophils # (auto) 0.1 10 ^3/uL (0-0.8); Eosinophils % (auto) 1.8 % (0.0-7.0); Hematocrit 38.1 % (41.0-53.0); Hemoglobin 12.8 g/dL (13.5-17.5); Lymphocytes # (auto) 0.3 10 ^3/uL (0.4-5.4); Lymphocytes % (auto) 5.6 % (10.0-50.0); Mean Corpuscular Hemoglobin 31.2 pg (28.0-32.0); Mean Corpuscular Hgb Conc. 33.6 g/dL (32.0-36.0); Mean Corpuscular Volume 92.8 fL (80.0-100.0); Monocytes # (auto) 0.8 10 ^3/uL (0-1.3); Monocytes % (auto) 12.8 % (0.0-12.0); Neutrophils # (auto) 4.8 10 ^3/uL (1.6-8.6); Neutrophils % (auto) 78.9 % (37.0-80.0); Nucleated Red Blood Cells % 0.2 %; Red Cell Distribution Width 14.4 % (11.8-14.3); White Blood Cell 6.1 10^3/uL (4.4-10.8)
[2023-09-30] MEDS: busPIRone HCL 10 MG TAB PO SCH (09:36)
[2023-09-30] MEDS: METOPROLOL TARTRATE 50 MG TAB PO SCH (09:37)
[2023-09-30] MEDS: predniSONE 5 MG TAB PO SCH (09:38)
[2023-09-30] MEDS: AMIODARONE HCL 200 MG TAB PO SCH (09:38)
[2023-09-30] MEDS ORDERED: METO-158 PO (09:50)
[2023-09-30] MEDS ORDERED: PANT40TA2 PO (09:50)
[2023-09-30] MEDS ORDERED: SUCR1TAB22 OR (09:50)
[2023-09-30] MEDS ORDERED: APIX5TAB PO (09:50)
[2023-09-30] MEDS ORDERED: AMIO200T33 PO (09:50)
[2023-09-30] MEDS ORDERED: PRE5T PO (09:50)
[2023-09-30] MEDS ORDERED: AUG875T PO (09:52)
[2023-09-30] MEDS ORDERED: APIXABAN 5 MG TAB PO SCH (10:00)
[2023-09-30 10:25] LABS: Anion Gap 7 (5-15); Carbon Dioxide 26 mmol/L (20-30); Chloride 93 mmol/L (98-107); Potassium 3.9 mmol/L (3.5-5.1)
[2023-09-30 10:26] LABS: Calcium 8.2 mg/dL (8.7-10.4)
[2023-09-30 10:31] LABS: Magnesium 1.6 mg/dL (1.6-2.6)
[2023-09-30] MEDS: amLODIPine BESYLATE 5 MG TAB PO SCH (11:15)
[2023-09-30 11:20] LABS: BUN/Creatinine Ratio 5.1 (10.0-20.0); Blood Urea Nitrogen < 5 mg/dL (9-23); Glucose 310 mg/dL (74-106); Sodium 126 mmol/L (136-145)
[2023-09-30] MEDS: guaiFENesin-DM 100/10mg/5ml SYR PO PRN (11:25)
[2023-09-30 12:48] VITALS: BP 136/45; PULSE 98; RESP 19; TEMP 36.6; O2SAT 93
[2023-09-30 13:00] VITALS: BP 111/38; PULSE 93; RESP 20; TEMP 98.8; O2SAT 91
[2023-09-30 14:58] LABS: Base Excess 4.3 mmol/L (-2.0-2.0)
[2023-09-30 16:45] VITALS: BP 150/36; PULSE 76; RESP 19; TEMP 97.8; O2SAT 93
[2023-09-30] MEDS ORDERED: AMIODARONE HCL 200 MG TAB PO SCH (22:00)
== END 2023-09-30 19:10 | disposition home health service (06) | DRG 602 ==
LOC: ER 17:04 → EDBD 17:04 → TELE 09-24 05:20 → TELE-WESTW 09-24 13:58
PROVIDERS: ADMIT Internal Medicine Geriatric Medicine; ATTEND Internal Medicine Geriatric Medicine
PROC: 05HD33Z Insertion of Infusion Device into Right Cephalic Vein, Percutaneous Approach (ICD-10-PCS; 2023-09-24)
PROC: B54MZZA Ultrasonography of Right Upper Extremity Veins, Guidance (ICD-10-PCS; 2023-09-24)
PROC: 0DB68ZX Excision of Stomach, Via Natural or Artificial Opening Endoscopic, Diagnostic (ICD-10-PCS; 2023-09-25)
PROC: 0DB58ZX Excision of Esophagus, Via Natural or Artificial Opening Endoscopic, Diagnostic (ICD-10-PCS; 2023-09-25)
PROC: 0DB98ZX Excision of Duodenum, Via Natural or Artificial Opening Endoscopic, Diagnostic (ICD-10-PCS; principal; 2023-09-25 15:44)
PROC: 0Y900ZZ Drainage of Right Buttock, Open Approach (ICD-10-PCS; 2023-09-28)
DX: L02.31 Cutaneous abscess of buttock (principal); E11.10 Type 2 diabetes mellitus with ketoacidosis without coma; L02.215 Cutaneous abscess of perineum; D84.821 Immunodeficiency due to drugs; Z94.0 Kidney transplant status; K22.10 Ulcer of esophagus without bleeding; I47.20 Ventricular tachycardia, unspecified; E78.00 Pure hypercholesterolemia, unspecified; E86.0 Dehydration; N40.1 Benign prostatic hyperplasia with lower urinary tract symptoms; R33.8 Other retention of urine; R06.6 Hiccough; M62.81 Muscle weakness (generalized); K44.9 Diaphragmatic hernia without obstruction or gangrene; Z20.822 Contact with and (suspected) exposure to COVID-19; I12.9 Hypertensive chronic kidney disease with stage 1 through stage 4 chronic kidney disease, or unspecified chronic kidney disease; N18.1 Chronic kidney disease, stage 1; E66.9 Obesity, unspecified; E83.42 Hypomagnesemia; E11.65 Type 2 diabetes mellitus with hyperglycemia; M85.80 Other specified disorders of bone density and structure, unspecified site; J44.9 Chronic obstructive pulmonary disease, unspecified; E11.22 Type 2 diabetes mellitus with diabetic chronic kidney disease; I48.0 Paroxysmal atrial fibrillation; E87.6 Hypokalemia; K29.70 Gastritis, unspecified, without bleeding; E83.39 Other disorders of phosphorus metabolism; Z68.32 Body mass index [BMI] 32.0-32.9, adult; Z83.3 Family history of diabetes mellitus; Z82.49 Family history of ischemic heart disease and other diseases of the circulatory system; Z79.899 Other long term (current) drug therapy; Z79.60 Long term (current) use of unspecified immunomodulators and immunosuppressants; Z79.4 Long term (current) use of insulin; Z79.01 Long term (current) use of anticoagulants; Z87.891 Personal history of nicotine dependence; Z86.73 Personal history of transient ischemic attack (TIA), and cerebral infarction without residual deficits; Z99.3 Dependence on wheelchair
CPT/HCPCS: 36415; 36600; 71045; 72192; 73610; 73630; 76881; 80048; 80053; 80202; 80320; 81001; 82010; 82553; 82565; 82805; 82962; 83036; 83605; 83690; 83735; 83930; 84100; 84484; 85025; 85610; 85652; 85730; 86141; 87040; 87070; 87075; 87077; 87081; 87186; 87205; 87426; 93005; 93306; C9113; G0378; J0692; J1815; J2001; J2250; J2405; J2704; J7507

== ENCOUNTER 2024-04-25 19:23 | Inpatient (IN) | payer MEDICARE, MEDICAID ==
[~2024-04-25] VITALS: Ht 180.3 cm; Wt 105.5 kg
[~2024-04-25 19:23] MED LIST changes: +AMIO200T33 PO; +APIX5TAB PO; +AUG875T PO; -B-COCAP34 OR; +BUSP15TA60 PO; +DESV1TAB PO; +LINA1CAP2 PO; +PANT40TA2 PO; +PRE5T PO; -PREG-111 PO; +PREG150C63 PO; +ROSU5TAB5 PO; +SEMA14TA2 PO; +SUCR1TAB31 OR; -SULF400I3 PO
[2024-04-25 20:22] LABS: Basophils # (auto) 0 10 ^3/uL (0-0.2); Basophils % (auto) 0.7 % (0.0-2.0); Eosinophils # (auto) 0.2 10 ^3/uL (0-0.8); Hematocrit 38.8 % (41.0-53.0); Hemoglobin 13.1 g/dL (13.5-17.5); Lymphocytes # (auto) 0.7 10 ^3/uL (0.4-5.4); Mean Corpuscular Hemoglobin 30.4 pg (28.0-32.0); Mean Corpuscular Hgb Conc. 33.8 g/dL (32.0-36.0); Mean Corpuscular Volume 89.9 fL (80.0-100.0); Monocytes # (auto) 0.4 10 ^3/uL (0-1.3); Monocytes % (auto) 9.8 % (0.0-12.0); Neutrophils # (auto) 2.6 10 ^3/uL (1.6-8.6); Neutrophils % (auto) 66.5 % (37.0-80.0); Nucleated Red Blood Cells % 0.1 %; Red Blood Cells 4.32 10^6/uL (4.5-5.90); Red Cell Distribution Width 14.6 % (11.8-14.3); White Blood Cell 3.9 10^3/uL (4.4-10.8)
[2024-04-25 20:37] LABS: Alanine Aminotransferase 11 U/L (7-40); Albumin 4.2 g/dL (3.2-4.8); Alkaline Phosphatase 57 U/L (46-116); Anion Gap 12 (5-15); Aspartate Aminotransferase 11 U/L (13-40); BUN/Creatinine Ratio 4.7 (10.0-20.0); Bilirubin, Total < 0.2 mg/dL (0.2-1.0); Blood Urea Nitrogen 17 mg/dL (9-23); Calcium 8.5 mg/dL (8.5-10.1); Carbon Dioxide 19 mmol/L (20-30); Chloride 99 mmol/L (98-107); Glucose 66 mg/dL (74-106); Potassium 4.1 mmol/L (3.5-5.1); Sodium 130 mmol/L (136-145)
[2024-04-25 20:46] LABS: INR 1.05 (0.9-1.15); Prothrombin Time 11.1 sec (9.3-11.8)
[2024-04-26] MEDS: MORPHINE SULFATE INJ 2 MG/ml SYRG IV ONE (05:27)
[2024-04-26] MEDS: ONDANSETRON HCL 4 MG/2 ML VIAL IV ONE (05:27)
[2024-04-26 09:16] LABS: Urine Bacteria None Seen /hpf (None Seen)
[2024-04-26] MEDS: HYDROcodone-ACET 5/325MG TAB PO ONE (09:25)
[2024-04-26 09:28] LABS: Urine Blood Negative /uL (Negative); Urine Clarity Clear (Clear); Urine Color Yellow (Yellow); Urine Protein, UAD 1+ (Negative); Urine Specific Gravity 1.018 (1.001-1.035); Urine Urobilinogen Normal (Negative); Urine WBC 16 /hpf (0 - 3); Urine pH 5.5 (5.0-9.0)
[2024-04-26] MEDS ORDERED: ONDANSETRON HCL 4 MG/2 ML VIAL IV PRN (09:30)
[2024-04-26] MEDS ORDERED: ACETAMINOPHEN 325 MG TAB PO PRN ×2 (09:30)
[2024-04-26] MEDS: LACTULOSE 20Gm/30ML SOLN PO ONE (09:30)
[2024-04-26] MEDS ORDERED: DEXTROSE (50%) 50ML SYRG IV PRN (09:45)
[2024-04-26] MEDS ORDERED: ALBUTEROL SULF 2.5 MG/0.5ML(0.5%) NEB SOLN NEB PRN (09:45)
[2024-04-26] MEDS: APIXABAN 5 MG TAB PO SCH (10:00)
[2024-04-26] MEDS ORDERED: BUSPIRONE HCL 15 MG PO SCH (10:00)
[2024-04-26] MEDS: INSULIN DEGLUDEC 52 UNIT SC SCH (10:00)
[2024-04-26] MEDS: DESVENLAFAXINE 100 MG PO SCH (10:00)
[2024-04-26] MEDS: TACROLIMUS 1 MG CAP PO SCH ×2 (10:00→22:00)
[2024-04-26] MEDS ORDERED: PATIENTS OWN MEDICATION (Rosuvastatin Calcium (Crestor) 1 TAB) PO SCH (10:00)
[2024-04-26] MEDS: ENOXAPARIN SOD 40 MG/0.4 ML SYRINGE SC SCH (10:21)
[2024-04-26] MEDS: AMIODARONE HCL 200 MG TAB PO SCH (10:21)
[2024-04-26] MEDS: SUCRALFATE 1 GM TAB PO SCH (10:22)
[2024-04-26] MEDS: METOPROLOL TARTRATE 50 MG TAB PO SCH (10:22)
[2024-04-26] MEDS: predniSONE 5 MG TAB PO SCH (10:22)
[2024-04-26] MEDS: amLODIPine BESYLATE 5 MG TAB PO SCH (10:22)
[2024-04-26 10:23] LABS: Triglycerides 75 mg/dL (< 150)
[2024-04-26] MEDS: PANTOPRAZOLE 40 MG TAB PO SCH (10:23)
[2024-04-26] MEDS: TAMSULOSIN HYDROCHLORIDE 0.4 MG CAP PO SCH (10:23)
[2024-04-26] MEDS: ASPirin-EC 81 mg tab PO SCH (10:23)
[2024-04-26] MEDS: PREGABALIN CAPSULE 75 MG CAP PO SCH (10:23)
[2024-04-26 10:24] LABS: LDL Cholesterol 65 mg/dL (< 100)
[2024-04-26 10:25] LABS: Cholesterol 119 mg/dL (< 200); HDL Cholesterol 43 mg/dL (40-59)
[2024-04-26] MEDS: InsuLIN REG 1unit/0.01ml Soln (100units/ml) SC SCH (10:57)
[2024-04-26] MEDS: ACCU-CHEK COMFORT CURVE STRIP VI SCH (10:58)
[2024-04-26 11:15] VITALS: PULSE 78; RESP 20; O2SAT 97
[2024-04-26] MEDS: NORTRIPTYLINE HCL 25 MG CAP PO SCH (17:03)
[2024-04-26 18:43] VITALS: O2SAT 96
[2024-04-26] MEDS: HYDROcodone-ACET 5/325MG TAB PO PRN (18:49)
[2024-04-26] MEDS: ATORVASTATIN 20 MG TAB PO SCH ×2 (22:12)
[2024-04-26] MEDS: busPIRone HCL 10 MG TAB PO SCH (22:12)
[2024-04-27] VITALS (11 sets, daily range): BP systolic 98–134; BP diastolic 35–66; PULSE 58–80; RESP 16–20; TEMP 97.6–98.4; O2SAT 95–99
[2024-04-27] MEDS: LINZESS 72 MG PO SCH (06:18)
[2024-04-27 07:34] LABS: Basophils # (auto) 0 10 ^3/uL (0-0.2); Basophils % (auto) 0.9 % (0.0-2.0); Eosinophils # (auto) 0.2 10 ^3/uL (0-0.8); Eosinophils % (auto) 5.7 % (0.0-7.0); Hematocrit 41.2 % (41.0-53.0); Hemoglobin 13.6 g/dL (13.5-17.5); Lymphocytes # (auto) 0.7 10 ^3/uL (0.4-5.4); Lymphocytes % (auto) 18.6 % (10.0-50.0); Mean Corpuscular Hemoglobin 30.3 pg (28.0-32.0); Mean Corpuscular Volume 91.8 fL (80.0-100.0); Monocytes # (auto) 0.4 10 ^3/uL (0-1.3); Monocytes % (auto) 9.8 % (0.0-12.0); Neutrophils # (auto) 2.5 10 ^3/uL (1.6-8.6); Nucleated Red Blood Cells % 0.2 %; Red Blood Cells 4.49 10^6/uL (4.5-5.90); White Blood Cell 3.8 10^3/uL (4.4-10.8)
[2024-04-27 07:50] LABS: Alkaline Phosphatase 56 U/L (46-116); Anion Gap 10 (5-15); Blood Urea Nitrogen 15 mg/dL (9-23); Calcium 8.4 mg/dL (8.7-10.4); Carbon Dioxide 16 mmol/L (20-30); Chloride 106 mmol/L (98-107); Glucose 163 mg/dL (74-106); Potassium 5.2 mmol/L (3.5-5.1); Sodium 132 mmol/L (136-145)
[2024-04-27 07:51] LABS: Albumin 3.8 g/dL (3.2-4.8); Aspartate Aminotransferase 10 U/L (13-40); Total Protein 6.7 g/dL (5.7-8.2)
[2024-04-27 07:59] LABS: Alanine Aminotransferase < 9 U/L (7-40)
[2024-04-27 08:06] LABS: PSA Free 0.26 ng/mL; Prostate Specific Antigen 0.7 ng/mL (0.0-4.0)
[2024-04-27 08:12] LABS: Bilirubin, Total 0.3 mg/dL (0.2-1.0)
[2024-04-27] MEDS: METOPROLOL TARTRATE 50 MG TAB PO SCH (10:26)
[2024-04-27] MEDS: MORPHINE SULFATE INJ 2 MG/ml SYRG IV PRN (15:09)
[2024-04-27] MEDS: cefTRIAXone 1GM/50ML D5W 50 ML IV ONE (16:24)
[2024-04-28] VITALS (7 sets, daily range): BP systolic 115–150; BP diastolic 34–71; PULSE 68–75; RESP 16–20; TEMP 97.5–98.6; O2SAT 90–98
[2024-04-28] MEDS: cefTRIAXone 1GM/50ML D5W 50 ML IV SCH (08:44)
[2024-04-28 08:55] LABS: Hepatitis B Surface Antigen Negative (Negative)
[2024-04-28 09:40] LABS: Hepatitis C Antibody Reactive (Negative)
[2024-04-28] MEDS: SODIUM CHLORIDE 0.9% 1,000 ML IV SCH (12:26)
[2024-04-29] VITALS (7 sets, daily range): BP systolic 129–152; BP diastolic 56–79; PULSE 68–82; RESP 16–20; TEMP 36.6; O2SAT 96–99
[2024-04-29] MEDS ORDERED: LEVO500T91 PO (09:29)
[2024-04-29] MEDS ORDERED: HYDR-4902 PO (09:53)
== END 2024-04-29 13:00 | disposition home or self-care (01) | DRG 725 ==
LOC: ER 19:23 → EDBD 19:23 → OVERFLOW 04-26 09:27 → CENTRAL 04-26 22:58
PROVIDERS: ADMIT Registered Nurse; ATTEND Family Medicine
DX: N40.1 Benign prostatic hyperplasia with lower urinary tract symptoms (principal); J18.9 Pneumonia, unspecified organism; N18.6 End stage renal disease; Z94.0 Kidney transplant status; N39.0 Urinary tract infection, site not specified; I12.0 Hypertensive chronic kidney disease with stage 5 chronic kidney disease or end stage renal disease; J44.0 Chronic obstructive pulmonary disease with (acute) lower respiratory infection; N13.8 Other obstructive and reflux uropathy; N17.9 Acute kidney failure, unspecified; E11.22 Type 2 diabetes mellitus with diabetic chronic kidney disease; E66.9 Obesity, unspecified; I48.0 Paroxysmal atrial fibrillation; E78.00 Pure hypercholesterolemia, unspecified; K59.00 Constipation, unspecified; E11.42 Type 2 diabetes mellitus with diabetic polyneuropathy; K58.9 Irritable bowel syndrome, unspecified; F32.A Depression, unspecified; R33.8 Other retention of urine; Z68.32 Body mass index [BMI] 32.0-32.9, adult; Z99.2 Dependence on renal dialysis; Z79.01 Long term (current) use of anticoagulants; Z82.49 Family history of ischemic heart disease and other diseases of the circulatory system; Z83.3 Family history of diabetes mellitus; Z79.4 Long term (current) use of insulin; Z79.899 Other long term (current) drug therapy
CPT/HCPCS: 36415; 71045; 71250; 74176; 80053; 80061; 81001; 82962; 83036; 83880; 84154; 84484; 85025; 85610; 85730; 86803; 87040; 87086; 87205; 87340; G0378; J1815; J7507

== ENCOUNTER 2024-05-09 13:09 | Inpatient (IN) | payer MEDICARE, MEDICAID ==
[~2024-05-09] VITALS: Ht 180.3 cm; Wt 104.6 kg
[~2024-05-09 13:09] MED LIST changes: +HYDR-4902 PO; +LEVO500T91 PO
[2024-05-09 14:40] LABS: Basophils # (auto) 0 10 ^3/uL (0-0.2); Eosinophils # (auto) 0.2 10 ^3/uL (0-0.8); Eosinophils % (auto) 5.8 % (0.0-7.0); Hematocrit 41.8 % (41.0-53.0); Lymphocytes # (auto) 0.8 10 ^3/uL (0.4-5.4); Lymphocytes % (auto) 21.8 % (10.0-50.0); Mean Corpuscular Hemoglobin 29.9 pg (28.0-32.0); Mean Corpuscular Hgb Conc. 33.5 g/dL (32.0-36.0); Mean Corpuscular Volume 89.4 fL (80.0-100.0); Monocytes # (auto) 0.5 10 ^3/uL (0-1.3); Neutrophils # (auto) 2.1 10 ^3/uL (1.6-8.6); Neutrophils % (auto) 58.4 % (37.0-80.0); Nucleated Red Blood Cells % 0.3 %; Red Blood Cells 4.68 10^6/uL (4.5-5.90); Red Cell Distribution Width 14.7 % (11.8-14.3); White Blood Cell 3.7 10^3/uL (4.4-10.8)
[2024-05-09 14:51] LABS: Chloride 106 mmol/L (98-107); Potassium 4.8 mmol/L (3.5-5.1); Sodium 136 mmol/L (136-145)
[2024-05-09 14:52] LABS: Anion Gap 6 (5-15); Carbon Dioxide 24 mmol/L (20-30)
[2024-05-09 14:57] LABS: Glucose 213 mg/dL (74-106)
[2024-05-09 14:58] LABS: BUN/Creatinine Ratio 6.8 (10.0-20.0); Blood Urea Nitrogen 28 mg/dL (9-23)
[2024-05-09] MEDS: SODIUM CHLORIDE 0.9% 1,000 ML IV ONE (15:05)
[2024-05-09] MEDS ORDERED: DEXTROSE (50%) 50ML SYRG IV PRN (20:30)
[2024-05-09] MEDS ORDERED: ONDANSETRON HCL 4 MG/2 ML VIAL IV PRN (20:30)
[2024-05-09] MEDS: InsuLIN REG 1unit/0.01ml Soln (100units/ml) SC SCH (22:00)
[2024-05-09] MEDS: TACROLIMUS 1 MG CAP PO SCH (22:00)
[2024-05-09] MEDS: ATORVASTATIN 20 MG TAB PO SCH (22:00)
[2024-05-09] MEDS: METOPROLOL TARTRATE 25 MG TAB PO SCH (22:00)
[2024-05-09] MEDS: ACCU-CHEK COMFORT CURVE STRIP VI SCH (22:07)
[2024-05-09] MEDS: APIXABAN 5 MG TAB PO SCH (23:01)
[2024-05-10 04:48] LABS: Basophils # (auto) 0 10 ^3/uL (0-0.2); Basophils % (auto) 0.8 % (0.0-2.0); Eosinophils # (auto) 0.2 10 ^3/uL (0-0.8); Eosinophils % (auto) 4.5 % (0.0-7.0); Hemoglobin 13.3 g/dL (13.5-17.5); Lymphocytes # (auto) 0.9 10 ^3/uL (0.4-5.4); Lymphocytes % (auto) 18.6 % (10.0-50.0); Mean Corpuscular Hemoglobin 30.1 pg (28.0-32.0); Mean Corpuscular Hgb Conc. 33.3 g/dL (32.0-36.0); Mean Corpuscular Volume 90.5 fL (80.0-100.0); Monocytes # (auto) 0.7 10 ^3/uL (0-1.3); Monocytes % (auto) 15.1 % (0.0-12.0); Neutrophils # (auto) 2.8 10 ^3/uL (1.6-8.6); Nucleated Red Blood Cells % 0.1 %; Red Blood Cells 4.42 10^6/uL (4.5-5.90); White Blood Cell 4.6 10^3/uL (4.4-10.8)
[2024-05-10 04:59] LABS: Chloride 106 mmol/L (98-107); Potassium 4.6 mmol/L (3.5-5.1); Sodium 136 mmol/L (136-145)
[2024-05-10 05:00] LABS: Anion Gap 9 (5-15); Calcium 9.9 mg/dL (8.5-10.1); Carbon Dioxide 21 mmol/L (20-30)
[2024-05-10 05:05] LABS: Blood Urea Nitrogen 27 mg/dL (9-23); Glucose 120 mg/dL (74-106)
[2024-05-10] MEDS: ACETAMINOPHEN 325 MG TAB PO PRN (05:37)
[2024-05-10 06:05] VITALS: PULSE 72; RESP 17; O2SAT 100
[2024-05-10 09:34] VITALS: PULSE 74; RESP 18; O2SAT 96
[2024-05-10] MEDS: busPIRone HCL 10 MG TAB PO SCH (10:35)
[2024-05-10] MEDS: amLODIPine BESYLATE 5 MG TAB PO SCH (10:36)
[2024-05-10] MEDS: TACROLIMUS 1 MG CAP PO SCH (11:06)
[2024-05-10 11:13] LABS: Urine Bacteria None Seen /hpf (None Seen)
[2024-05-10 11:40] LABS: Urine Blood Negative /uL (Negative); Urine Clarity Clear (Clear); Urine Color Yellow (Yellow); Urine Hyaline Cast FEW /lpf (0 - 2); Urine Protein, UAD TRACE (Negative); Urine Specific Gravity 1.022 (1.001-1.035); Urine Urobilinogen Normal (Negative); Urine WBC 1 /hpf (0 - 3); Urine pH 5.5 (5.0-9.0)
[2024-05-10] MEDS: HYDROcodone-ACET 5/325MG TAB PO PRN (12:31)
[2024-05-10] MEDS: SODIUM CHLORIDE 0.9% 1,000 ML IV SCH (12:32)
[2024-05-10] MEDS: predniSONE 5 MG TAB PO ONE (12:32)
[2024-05-10 16:40] VITALS: BP 108/58; PULSE 61; RESP 18; TEMP 97.6; O2SAT 100
[2024-05-10] MEDS: TAMSULOSIN HYDROCHLORIDE 0.4 MG CAP PO SCH (18:17)
[2024-05-10 20:00] VITALS: PULSE 70; RESP 2; O2SAT 100
[2024-05-10 20:57] VITALS: BP 104/56; PULSE 70; RESP 18; TEMP 97.6; O2SAT 100
[2024-05-10] MEDS: ATORVASTATIN 20 MG TAB PO SCH (21:20)
[2024-05-11] VITALS (8 sets, daily range): BP systolic 126–186; BP diastolic 56–70; PULSE 56–97; RESP 16–20; TEMP 97.6–98.6; O2SAT 95–100
[2024-05-11] MEDS: FINASTERIDE 5 MG TAB PO SCH (09:24)
[2024-05-11] MEDS: predniSONE 5 MG TAB PO SCH (09:24)
[2024-05-11] MEDS: AMIODARONE HCL 200 MG TAB PO SCH (09:29)
[2024-05-11 10:00] LABS: Basophils # (auto) 0 10 ^3/uL (0-0.2); Basophils % (auto) 0.8 % (0.0-2.0); Eosinophils # (auto) 0.2 10 ^3/uL (0-0.8); Eosinophils % (auto) 4.6 % (0.0-7.0); Hematocrit 37.9 % (41.0-53.0); Hemoglobin 12.7 g/dL (13.5-17.5); Lymphocytes # (auto) 0.7 10 ^3/uL (0.4-5.4); Lymphocytes % (auto) 22.9 % (10.0-50.0); Mean Corpuscular Hemoglobin 30.2 pg (28.0-32.0); Mean Corpuscular Hgb Conc. 33.4 g/dL (32.0-36.0); Mean Corpuscular Volume 90.5 fL (80.0-100.0); Monocytes # (auto) 0.4 10 ^3/uL (0-1.3); Monocytes % (auto) 13.4 % (0.0-12.0); Neutrophils # (auto) 1.9 10 ^3/uL (1.6-8.6); Neutrophils % (auto) 58.3 % (37.0-80.0); Red Blood Cells 4.19 10^6/uL (4.5-5.90); Red Cell Distribution Width 14.8 % (11.8-14.3); White Blood Cell 3.3 10^3/uL (4.4-10.8)
[2024-05-11 10:07] LABS: Alanine Aminotransferase 13 U/L (7-40); Albumin 3.4 g/dL (3.2-4.8); Alkaline Phosphatase 55 U/L (46-116); Anion Gap 4 (5-15); Aspartate Aminotransferase 27 U/L (13-40); BUN/Creatinine Ratio 8.1 (10.0-20.0); Blood Urea Nitrogen 33 mg/dL (9-23); Calcium 9.1 mg/dL (8.5-10.1); Carbon Dioxide 24 mmol/L (20-30); Chloride 107 mmol/L (98-107); Potassium 4.8 mmol/L (3.5-5.1); Sodium 135 mmol/L (136-145)
[2024-05-11 10:08] LABS: Bilirubin, Total 0.3 mg/dL (0.2-1.0); Total Protein 5.8 g/dL (5.7-8.2)
[2024-05-11 10:32] LABS: Glucose 273 mg/dL (74-106)
[2024-05-11] MEDS: INSULIN LANTUS (GLARGINE) 1 /0.01ml (100units/ml) SC ONE (13:20)
[2024-05-11] MEDS: INSULIN LANTUS (GLARGINE) 1 /0.01ml (100units/ml) SC SCH (21:31)
[2024-05-11] MEDS: HYDROcodone-ACET 10/325MG TAB PO PRN (22:22)
[2024-05-12 01:00] VITALS: BP 157/49; PULSE 72; RESP 19; TEMP 97.9; O2SAT 100
[2024-05-12 05:00] VITALS: BP 128/66; PULSE 65; RESP 16; TEMP 97.6; O2SAT 100
[2024-05-12 07:04] LABS: Basophils # (auto) 0 10 ^3/uL (0-0.2); Basophils % (auto) 0.7 % (0.0-2.0); Eosinophils # (auto) 0.1 10 ^3/uL (0-0.8); Eosinophils % (auto) 3.7 % (0.0-7.0); Hematocrit 37.6 % (41.0-53.0); Hemoglobin 12.6 g/dL (13.5-17.5); Lymphocytes # (auto) 0.8 10 ^3/uL (0.4-5.4); Lymphocytes % (auto) 19.5 % (10.0-50.0); Mean Corpuscular Hemoglobin 29.9 pg (28.0-32.0); Mean Corpuscular Hgb Conc. 33.4 g/dL (32.0-36.0); Mean Corpuscular Volume 89.6 fL (80.0-100.0); Monocytes # (auto) 0.4 10 ^3/uL (0-1.3); Monocytes % (auto) 9.7 % (0.0-12.0); Neutrophils # (auto) 2.6 10 ^3/uL (1.6-8.6); Neutrophils % (auto) 66.4 % (37.0-80.0); Nucleated Red Blood Cells % 0.3 %; Red Cell Distribution Width 14.3 % (11.8-14.3); White Blood Cell 3.8 10^3/uL (4.4-10.8)
[2024-05-12 07:05] LABS: Anion Gap 5 (5-15); Carbon Dioxide 24 mmol/L (20-30); Chloride 108 mmol/L (98-107); Potassium 4.9 mmol/L (3.5-5.1); Sodium 137 mmol/L (136-145)
[2024-05-12 07:06] LABS: Calcium 9.3 mg/dL (8.5-10.1)
[2024-05-12 07:11] LABS: BUN/Creatinine Ratio 11.7 (10.0-20.0); Blood Urea Nitrogen 28 mg/dL (9-23); Glucose 251 mg/dL (74-106)
[2024-05-12 08:00] VITALS: O2SAT 100
[2024-05-12 09:00] VITALS: BP 148/73; PULSE 72; RESP 20; TEMP 97.6; O2SAT 98
[2024-05-12] MEDS: DOCUSATE SOD 100 MG CAP PO ONE (10:15)
[2024-05-12] MEDS ORDERED: FIN5T PO (12:57)
[2024-05-12] MEDS ORDERED: GABA-1250 PO (12:57)
[2024-05-12 13:00] VITALS: BP 103/48; PULSE 66; RESP 20; TEMP 97.8; O2SAT 92
[2024-05-12] MEDS: GABAPENTIN 300 MG CAP PO SCH (13:49)
[2024-05-12 17:00] VITALS: BP 147/74; PULSE 64; RESP 20; TEMP 97.9; O2SAT 99
[2024-05-12] MEDS ORDERED: DOCUSATE SOD 100 MG CAP PO SCH (22:00)
[2024-05-12] MEDS ORDERED: busPIRone HCL 10 MG TAB PO SCH (22:00)
== END 2024-05-12 17:55 | disposition home health service (06) | DRG 683 ==
LOC: ER 13:09 → OVERFLOW 20:26 → CENTRAL 05-10 15:02
PROVIDERS: ADMIT Nurse Practitioner; ATTEND Internal Medicine
DX: N17.0 Acute kidney failure with tubular necrosis (principal); D68.69 Other thrombophilia; D84.9 Immunodeficiency, unspecified; N13.8 Other obstructive and reflux uropathy; Z94.0 Kidney transplant status; I13.2 Hypertensive heart and chronic kidney disease with heart failure and with stage 5 chronic kidney disease, or end stage renal disease; N18.6 End stage renal disease; E11.22 Type 2 diabetes mellitus with diabetic chronic kidney disease; E86.0 Dehydration; N40.1 Benign prostatic hyperplasia with lower urinary tract symptoms; J44.9 Chronic obstructive pulmonary disease, unspecified; K21.9 Gastro-esophageal reflux disease without esophagitis; E78.5 Hyperlipidemia, unspecified; G89.4 Chronic pain syndrome; I48.91 Unspecified atrial fibrillation; R33.8 Other retention of urine; E66.9 Obesity, unspecified; D69.6 Thrombocytopenia, unspecified; E11.40 Type 2 diabetes mellitus with diabetic neuropathy, unspecified; M21.962 Unspecified acquired deformity of left lower leg; I50.9 Heart failure, unspecified; Z82.49 Family history of ischemic heart disease and other diseases of the circulatory system; Z83.3 Family history of diabetes mellitus; Z79.899 Other long term (current) drug therapy; Z46.3 Encounter for fitting and adjustment of dental prosthetic device; Z68.32 Body mass index [BMI] 32.0-32.9, adult; Z86.73 Personal history of transient ischemic attack (TIA), and cerebral infarction without residual deficits
CPT/HCPCS: 36415; 70450; 70486; 80048; 80053; 81001; 82962; 84484; 85025; 87081; 87086; 87340; 97110; 97163; 97530; G0378; J1815; J7507